=== PATIENT | male | born 1970 | race Caucasian/White ===

== ENCOUNTER 2018-04-06 19:37 | Emergency (ER) | payer OTHER ==
[~2018-04-06] VITALS: Ht 175.3 cm; Wt 77.0 kg
[~2018-04-06 19:37] MED LIST: AMOXICILLIN500 MG OR; NO CURRENT MEDS; ULTRAM50 MG OR
[2018-04-06] MEDS ORDERED: CLONAZEPAM1 MG PO (19:52)
[2018-04-06] MEDS ORDERED: CLONAZEPAM2 MG PO (19:52)
[2018-04-06] MEDS ORDERED: CLARITIN RDT10 MG PO (19:54)
[2018-04-06] MEDS ORDERED: BUPROPION HYDR100 MG PO (19:55)
[2018-04-06 21:50] VITALS: BP 123/69
== END 2018-04-06 21:55 | disposition designated cancer center or children's hospital (05) | DRG 395 ==
LOC: ED 19:37
DX: T18.4XXA Foreign body in colon, initial encounter (principal); S51.812A Laceration without foreign body of left forearm, initial encounter; X58.XXXA Exposure to other specified factors, initial encounter; X78.8XXA Intentional self-harm by other sharp object, initial encounter; Y92.149 Unspecified place in prison as the place of occurrence of the external cause; Z91.5 Personal history of self-harm

== ENCOUNTER 2019-06-23 13:48 | Observation (INO) | payer OTHER ==
[~2019-06-23] VITALS: Ht 175.3 cm; Wt 70.0 kg
[~2019-06-23 13:48] MED LIST changes: +BUPROPION HYDR100 MG PO; +CLARITIN RDT10 MG PO; +CLONAZEPAM1 MG PO; +CLONAZEPAM2 MG PO
[2019-06-23 14:17] LABS: HEMATOCRIT 43.6 % (39.0-50.0); HEMOGLOBIN 14.6 g/dl (14.0-18.0); IMMATURE GRANULOCYTES 0.3 % (0.0-5.0); MEAN CELL VOLUME 90.8 fL CALC (80.0-100.0); MEAN CORPUSCULAR HGB 30.4 pG CALC (26.0-32.0); MEAN CORPUSCULAR HGB CONC 33.5 g/L CALC (32.0-36.0); NEUT# 9.77 thou/uL (1.82-7.42); RED BLOOD COUNT 4.8 mill/uL (4.70-6.10); RED CELL DISTRI WIDTH 12.9 % (11.5-15.5)
[2019-06-23 14:39] LABS: ALBUMIN 4.1 g/dL (3.2-5.0); ANION GAP 12 (6-22 (CALC)); BILIRUBIN, TOTAL 0.7 mg/dL (0.0-1.4); BUN 18 mg/dL (9-20); BUN/CREATININE RATIO 16 (12-20 (CALC)); CARBON DIOXIDE 31 mmol/l (22-30); CHLORIDE 101 mmol/l (95-108); CREATININE 1.1 mg/dL (0.7-1.3); GFR > 60 ML/MIN (>=60 (CALC)); GFR FOR AFR.AMER. > 60 ML/MIN (>=60 (CALC)); LIPASE 58 u/l (23-300); SGOT/AST 32 u/l (17-59); SODIUM 140 mmol/l (137-146); TOTAL PROTEIN 7.3 g/dL (6.3-8.2)
[2019-06-23 14:45] LABS: ALKALINE PHOSPHATASE 123 u/l (38-126)
[2019-06-23] MEDS ORDERED: SEROQUEL100 MG PO (15:56)
[2019-06-23] MEDS ORDERED: BENADRYL 25MG C25 MG PO (15:56)
[2019-06-23 16:20] VITALS: BP 127/71
[2019-06-23 16:29] LABS: URINE BILIRUBIN - DIPSTICK NEGATIVE (NEGATIVE); URINE BLOOD DIPSTICK NEGATIVE (NEGATIVE); URINE COLOR YELLOW; URINE GLUCOSE - DIPSTICK NEGATIVE (NEGATIVE); URINE KETONE NEGATIVE (NEGATIVE); URINE LEUK ESTERASE NEGATIVE (NEGATIVE); URINE NITRITE - DIPSTICK NEGATIVE (Negative); URINE PH 5.5 (4.5-8.0); URINE PROTEIN - DIPSTICK NEGATIVE (NEG-TRACE); URINE SPECIFIC GRAVITY 1.015; URINE UROBILINOGEN - DIPSTICK 0.2 E.U./dL (0.2)
[2019-06-23 19:05] VITALS: BP 106/69
== END 2019-06-24 04:36 | disposition left against medical advice (07) | DRG 395 ==
LOC: ED 13:48 → ED-I 14:52 → ED 15:11 → MS2 15:12
PROVIDERS: Family Medicine; ADMIT Surgery; ATTEND Surgery
DX: T18.2XXA Foreign body in stomach, initial encounter (principal); X58.XXXA Exposure to other specified factors, initial encounter
CPT/HCPCS: G0378; S0164

== ENCOUNTER 2023-03-01 20:08 | Observation (INO) | payer OTHER ==
[2023-03-01] VITALS (8 sets, daily range): BP systolic 105–134; BP diastolic 73–92
[~2023-03-01] VITALS: Ht 175.3 cm; Wt 78.3 kg
[~2023-03-01 20:08] MED LIST changes: +BENADRYL 25MG C25 MG PO; +SEROQUEL100 MG PO
[2023-03-01 21:37] LABS: BASO% 0.4 % (0-3); EOS% 0.2 % (0-8); HEMATOCRIT 47.5 % (39.0-50.0); HEMOGLOBIN 15.9 g/dl (14.0-18.0); IMMATURE GRANULOCYTES 0.1 % (0.0-5.0); LYMPH% 38.8 % (15-41); MEAN CELL VOLUME 91.7 fL CALC (80.0-100.0); MEAN CORPUSCULAR HGB 30.7 pG CALC (26.0-32.0); MEAN CORPUSCULAR HGB CONC 33.5 g/dL CAL (32.0-36.0); MONO% 12.2 % (2-13); NEUT# 4.3 thou/uL (1.82-7.42); NEUT% 48.3 % (42-76); RED BLOOD COUNT 5.18 mill/uL (4.70-6.10); RED CELL DISTRI WIDTH 12.8 % (11.5-15.5)
[2023-03-01 21:47] LABS: ALKALINE PHOSPHATASE 70 u/l (38-126); ANION GAP 12 (6-22 (CALC)); BUN 19 mg/dL (9-20); BUN/CREATININE RATIO 18 (12-20 (CALC)); CARBON DIOXIDE 32 mmol/l (22-30); CHLORIDE 99 mmol/l (95-108); GFR FOR AFR.AMER. > 60 ML/MIN (>=60 (CALC)); GFR OTHER RACES > 60 ML/MIN (>=60 (CALC)); POTASSIUM 3.9 mmol/l (3.5-5.1); SGOT/AST 30 u/l (17-59); SODIUM 140 mmol/l (137-146)
[2023-03-01 21:50] LABS: ALBUMIN 4.7 g/dL (3.2-5.0); BILIRUBIN, TOTAL 0.7 mg/dL (0.2-1.3); TOTAL PROTEIN 7.8 g/dL (6.3-8.2)
[2023-03-02] VITALS (19 sets, daily range): BP systolic 105–127; BP diastolic 69–89
[2023-03-03 00:45] VITALS: BP 120/79
[2023-03-03 07:43] VITALS: BP 104/74
== END 2023-03-03 14:38 | disposition designated cancer center or children's hospital (05) | DRG 395 ==
LOC: ED 20:08 → ED-I 23:30 → ED 23:52 → MS2 23:53 → ICU 23:53 → MS2 03-02 15:41
PROVIDERS: Emergency Medicine; ADMIT Surgery; ATTEND Surgery
DX: T18.2XXA Foreign body in stomach, initial encounter (principal); X83.8XXA Intentional self-harm by other specified means, initial encounter; Y92.149 Unspecified place in prison as the place of occurrence of the external cause
CPT/HCPCS: G0378

== ENCOUNTER 2024-04-25 20:11 | Emergency (ER) | payer OTHER ==
[~2024-04-25] VITALS: Ht 175.3 cm; Wt 75.0 kg
[2024-04-25] VITALS (7 sets, daily range): BP systolic 105–126; BP diastolic 57–81
[2024-04-25] MEDS ORDERED: TRIHEXYPHENIDYL5 MG PO (22:09)
[2024-04-25] MEDS ORDERED: GABAPENTIN300 M2 PO (22:10)
[2024-04-25] MEDS ORDERED: CARAFATE1 GM PO (22:11)
== END 2024-04-25 22:41 | disposition designated cancer center or children's hospital (05) | DRG 395 ==
LOC: ED 20:11
DX: T18.9XXA Foreign body of alimentary tract, part unspecified, initial encounter (principal); W44.A9XA Other batteries entering into or through a natural orifice, initial encounter; Y92.149 Unspecified place in prison as the place of occurrence of the external cause; Z91.52 Personal history of nonsuicidal self-harm